=== PATIENT | male | born 1970 | race Hispanic/Latino ===

== ENCOUNTER 2017-06-20 09:11 | Outpatient (CLI) | payer BC ==
--- NOTE | 2017-06-20 10:41 | XRay Report ---
LEFT KNEE RADIOGRAPHS INDICATION: Left knee pain, stepped off a curb. COMPARISON: None similar. FINDINGS: Standing AP, lateral and oblique left knee radiographs demonstrate intact articulation. Prominent medial projecting tibial spine. Corresponding 5 mm osteochondral lucency or subchondral cyst along the lateral aspect of medial femoral condyle not entirely excluded on the frontal views versus projectional. No suprapatellar effusion. CONCLUSION: No definite acute left knee radiographic abnormality with mild degenerative changes possible, as described. Please correlate. Thank you for the opportunity to participate in this patient's care.
== END 2017-06-20 09:12 | disposition home or self-care (01) ==
LOC: SPVIMAG 09:11
PROVIDERS: ATTEND Nurse Practitioner Family
DX: M25.562 Pain in left knee (principal)